=== PATIENT | male | born 2000 | race African-American/Black ===

== ENCOUNTER 2025-06-21 08:41 | Inpatient (IN) | payer BC, SELFPAY ==
[2025-06-21] VITALS (22 sets, daily range): BP systolic 143–170; BP diastolic 83–99; PULSE 45–68; RESP 14–24; TEMP 36.5–37.3; O2SAT 96–100; BMI 21.2
--- NOTE | ~2025-06-21 | XR_ITS ---
EXAMINATION: XR chest 2V DATE: 06/21/2025 11:13 INDICATION: Dizziness. Tachycardia. TECHNIQUE: PA and lateral views of the chest were obtained. COMPARISON: None FINDINGS: The lungs are clear with no focal airspace opacities, pulmonary edema, pleural effusion or pneumothorax. The cardiomediastinal silhouette is normal. Visualized bones and soft tissues are unremarkable. IMPRESSION: 1. No acute cardiopulmonary disease. Reviewed, dictated and finalized at location A.
--- NOTE | ~2025-06-21 | CT_ITS ---
CT brain wo con HISTORY:Dizziness COMPARISON: None. TECHNIQUE: Axial images were obtained of the head without intravenous contrast. FINDINGS: No acute intracranial hemorrhage, mass effect or midline shift. No extra-axial fluid collections. The calvarium is intact. Visualized paranasal sinuses and mastoid air cells are clear. IMPRESSION: No acute intracranial hemorrhage or extra axial fluid collections. All CT scans at this facility are performed using low dose modulation techniques as appropriate to perform exam including the following: automated exposure control; use of iterative reconstruction technique; adjustment of the mA and/or kV according to patient size (this includes techniques or standardized protocols for targeted exams where dose is matched to indication/reason for exam). Reviewed, dictated and finalized at location S. IMPRESSION: No acute intracranial hemorrhage or extra axial fluid collections. All CT scans at this facility are performed using low dose modulation techniqu es as appropriate to perform exam including the following: automated exposure c ontrol; use of iterative reconstruction technique; adjustment of the mA and/or kV according to patient size (this includes techniques or standardized protocol s for targeted exams where dose is matched to indication/reason for exam).
--- NOTE | ~2025-06-21 | US_ITS ---
EXAMINATION: US retroperitoneal duplex ltd DATE: 06/22/2025 09:32 INDICATION: Hypertension and bradycardia with heart block TECHNIQUE: Multiple grayscale, color Doppler, and pulsed Doppler images of the kidneys and renal arteries were obtained. COMPARISON: None. FINDINGS: The aorta peak systolic velocity is 100 cm/s. The right renal artery peak systolic velocity is 98 cm/s in the proximal segment, 83 cm/s in the mid segment, and 68 cm/s in the distal segment. The left renal artery peak systolic velocity is 75 cm/s in the proximal segment, 75 cm/s in the mid segment, and 67 cm/s in the distal segment. IMPRESSION: 1. No Doppler evidence of renal artery stenosis. Reviewed, dictated and finalized at location A.
--- NOTE | 2025-06-21 08:59 | ECG_ITS ---
Test Date: 2025-06-21 09:02:21 Measurements Intervals [place] Rate: 40 P: 9 MN: 152 QRS: 57 QRSD: 93 T: 40 QT: 421 QTc: 344 Interpretive Statements SINUS BRADYCARDIA CANNOT R/O SEPTAL INFARCT, AGE INDETERMINATE ABNORMAL ECG No previous ECG available for comparison Electronically Signed On 06-21-2025 09:06:58 CDT by Jermaine Remy D.O.
[2025-06-21 09:30] LABS: Hematocrit 45.6 % (42.0-52.0); Hemoglobin 14.9 g/dL (14.0-18.0); Immature Granulocyte Percent A 0.2 % (0-0.5); Lymphocytes Absolute Auto 2.17 K/mm3 (0.9-3.2); Mean Corpuscular HGB Conc 32.7 g/dl (32-36); Mean Corpuscular Hemoglobin 29.3 pg (26-34); Mean Corpuscular Volume 89.8 fl (80-100); Nucleated Red Blood Cells Absolute Auto 0.000 K/mm3 (0.0-0.012); Nucleated Red Blood Cells Perc 0.0 % (0.0-0.2); Platelet Count Result 153 k/mm3 (150-375); Red Blood Count 5.08 M/mm3 (4.6-6.20); White Blood Count 5.6 K/mm3 (4.5-10.0)
[2025-06-21] MEDS: SODIUM CHLORIDE 0.9% IV 1,000 ML 999 ML IV CONT (09:41)
--- NOTE | 2025-06-21 09:43 | ED_ITS ---
HPI - Dizziness General Chief Complaint: Abdominal Pain <Umang Balderas APRN - Last Filed: 06/21/25 12:46> Stated Complaint: N/V SINCE 729,DIZZINESS,ABD PAIN <Umang Balderas APRN - Last Filed: 06/21/25 12:46> Time Seen by Provider: 06/21/25 09:19 <Umang Balderas APRN - Last Filed: 06/21/25 12:46> History of Present Illness HPI Narrative: 25-year-old male presents [facility] complaining of dizziness, nausea, vomiting, abdominal pain since last night. Patient said approximately 12 hours ago she started with sudden dizziness, he cannot describe the dizziness but states his face is numb. Since then the patient says he has been having nausea and vomiting and generalized abdominal pain. Patient is having a hard time walking to the dizziness. Patient says when he vomits he feels like he has the past. Denies any loss of consciousness. Patient denies any headaches, ear pain, upper respiratory symptoms, cough, fevers, body aches and chills, chest pain, shortness of breath, diarrhea. Patient denies any significant past medical history. Patient denies any alcohol use. Patient reports using marijuana denies any other drug use. Patient denies taking any medication daily. Patient says this has never happened before. <Umang Balderas APRN - Last Filed: 06/21/25 12:46> Related Data Home Medications: Home Medications ?Medication ?Instructions ?Recorded ?Confirmed ?Last Taken ?Type No Home Medications 06/21/25 06/21/25 U nknown History <Umang Balderas APRN - Last Filed: 06/21/25 12:46> Allergies/Adverse Reactions: Allergies Allergy/AdvReac Type Severity Reaction Status Date / Time No Known Allergies Allergy Verified 06/21/25 14:33 <Umang Balderas APRN - Last Filed: 06/21/25 12:46> Review of Systems 2 Review of Systems: CONSTITUTIONAL: Denies fever, chills, or sweats. EYES: Denies visual changes, redness, or discharge. ENT: Denies rhinorrhea, congestion, sore throat, or otalgia. CARDIOVASCULAR: Denies chest pain, palpitations, or edema. Positive for dizziness and lightheadedness. RESPIRATORY: Denies cough or dyspnea. GASTROINTESTINAL: Positive for abdominal pain, nausea, vomiting. Negative for diarrhea. GENITOURINARY: Denies dysuria or hematuria. SKIN: Denies rash or itching. MUSCULOSKELETAL: Denies back pain, joint pain, or myalgia. NEUROLOGIC: Denies headache, numbness, seizures, loss of consciousness, slurred speech, focal weakness, or weakness. PSYCHIATRIC: Denies anxiety or depression. All other systems reviewed are negative, except as documented in HPI. <Umang Balderas APRN - Last Filed: 06/21/25 12:46> PMFSH Past Medical History Medical History: Medical History (Updated 06/21/25 @ 17:28 by Sunday Royal MD) Migraines Asthma <Umang Balderas APRN - Last Filed: 06/21/25 12:46> Family History Family History: Family History (Updated 06/21/25 @ 17:26 by Sunday Royal MD) Mother Hypertension <Umang Balderas APRN - Last Filed: 06/21/25 12:46> Social History Social History: Social History Smoking status: Never smoker Second hand tobacco smoke exposure: No Alcohol intake: never Substance use: current Substance use type: marijuana Lack of Transportation: No Lack of Food: Never True Current Housing: I Have Housing Concerned About Future Housing: No Difficulty Paying Gas/Electric Bills: No Difficulty Paying for Meds: No Currently Unemployed: No Education: Associate Degree Difficulty w/ Childcare or Family Care: No Spiritual care concerns: No <Umang Balderas APRN - Last Filed: 06/21/25 12:46> Exam 2 Narrative: GENERAL: This is a well-nourished, well-developed adult, in no apparent distress. They are non ill-appearing, nontoxic appearing patient appears lethargic.. HEAD: normocephalic, atraumatic. EYES: Sclera clear/white. Vision is grossly intact. Extraocular movements intact. Pupils PERRLA. No nystagmus. EARS: External ears normal, Hearing grossly intact. NOSE: External nose normal THROAT: Mucous membranes moist, NECK: Neck supple, CARDIOVASCULAR: Bradycardic rate and rhythm without murmurs, gallops, or rubs. RESPIRATORY: Clear to auscultation. Breath sounds equal bilaterally. No wheezes, rales, or rhonchi. GASTROINTESTINAL: Abdomen soft, mild tenderness to of the local region, nondistended. Bowel sounds are active. No hepato-splenomegaly, or palpable masses. No guarding or rigidity. SKIN: warm, Dry, intact with no suspicious lesions or rash, good texture and turgor. NEURO: awake, alert, and oriented to person, place and time. There were no obvious focal neurologic abnormalities. EXTREMITIES: No joint tenderness, effusion, or edema noted. <Umang Balderas APRN - Last Filed: 06/21/25 12:46> Course B2B ACCOUNT EXECUTIVE/PA Physician Supervision DARCY discussed this patient with me/consulted me. I did note that he had a 5second pause and a 3+ second pause on rhythm strip when RN noted that he became bradycardic to 29. EKG was without pauses but discussed the importance of obtaining electrolytes, assessing for murmurs (at baseline as well as invoking maneuvers that might identify them), asking family history. While possible that at baseline he is bradycardic (no VS from previous in EMR for review) given age/body habitus, and he might have had a vagal episode, the pauses would be concerning and I recommended consulting cardiology. Patient has also been hypertensive which, given age, is somewhat worrisome. Advised UDS be obtained. Noted that patient might benefit from an echo but that these are not performed outpatient / for ED patients. Patient ultimately admitted. <Garima Velazquez MD - Last Filed: 06/22/25 04:34> Vital Signs Vital signs: Vital Signs Pulse Rate 47 L 06/21/25 08:58 Respiratory Rate 24 H 06/21/25 08:58 Pulse Oximetry 96 06/21/25 08:58 Temperature 99.1 F 06/21/25 22:00 Pulse Rate 49 L 06/22/25 04:00 Respiratory Rate 20 06/21/25 22:00 Blood Pressure 160/99 H 06/21/25 22:00 Pulse Oximetry 99 06/21/25 22:00 Oxygen Delivery Room Air 06/21/25 21:45 <Umang Balderas APRN - Last Filed: 06/21/25 12:46> Vital Signs Pulse Rate 47 L 06/21/25 08:58 Respiratory Rate 24 H 06/21/25 08:58 Pulse Oximetry 96 06/21/25 08:58 Temperature 99.1 F 06/21/25 22:00 Pulse Rate 49 L 06/22/25 04:00 Respiratory Rate 20 06/21/25 22:00 Blood Pressure 160/99 H 06/21/25 22:00 Pulse Oximetry 99 06/21/25 22:00 Oxygen Delivery Room Air 06/21/25 21:45 <Garima Velazquez MD - Last Filed: 06/22/25 04:34> MDM - Dizziness MDM Narrative Medical decision making narrative: EKG is sinus bradycardia, possible LVH, no ST elevation or depression. Patient to sinus pauses while here today. Longest pause was approximately 5 seconds, 2nd was at 3.4 seconds, and earlier this morning. No other sinus positive bowel patient has been here. CBC, CMP, delete grossly unremarkable. Negative troponin. Normal magnesium. Urinalysis showed 2+ ketones and protein, urine drug screen shows marijuana he use which patient admits to. Chest x-ray negative for acute cardiopulmonary findings, no cardiomegaly. Patient reports feeling significantly better after IV fluids. Called Dr. Royal from cardiology about patient who agrees patient should be admitted for observation have echo obtained. Patient is agreeable to be admitted to the hospital. Called hospitalist and spoke with Dr. Leiva who agrees and will admit the patient to observation on med tele. <Umang Balderas APRN - Last Filed: 06/21/25 12:46> Differential Diagnosis Differential diagnosis: Likely other (Sinus bradycardia, sinus pauses, sick sinus syndrome, HOCM, dehydration, cyclic vomiting, cardiomyopathy, arrhythmia, myocardial infarction) <Umang Balderas APRN - Last Filed: 06/21/25 12:46> Lab Data Result diagrams: 06/21/25 09:14 06/21/25 09:14 <Umang Balderas APRN - Last Filed: 06/21/25 12:46> Labs: Lab Results 06/21/25 06/21/25 06/21/25 Range/Units 09:14 09:14 09:30 WBC 5.6 (4.5-10.0) K/mm3 RBC 5.08 (4.6-6.20) M/mm3 Hgb 14.9 (14.0-18.0) g/dL Hct 45.6 (42.0-52.0) % MCV 89.8 (80-100) fl MCH 29.3 (26-34) pg MCHC 32.7 (32-36) g/dl RDW 14.4 (11.5-14.5) % Plt Count 153 (150-375) k/mm3 MPV 11.0 H (7.4-10.4) fl Immature Gran % (Auto) 0.2 (0-0.5) % Neut % (Auto) 52.5 (45.5-73.1) % Lymph % (Auto) 38.9 (18.3-44.2) % [place] % (Auto) 6.6 (2.6-8.5) % Eos % (Auto) 1.4 (0-4.4) % Baso % (Auto) 0.4 (0.2-1.2) % Lymph # (Auto) 2.17 (0.9-3.2) K/mm3 [place] # (Auto) 0.4 (0.1-0.6) K/mm3 Eos # (Auto) 0.1 (0-0.3) K/mm3 Baso # (Auto) 0.0 (0.0-0.1) K/mm3 Abs Immat Gran (auto) 0.01 (0.00-0.031) K/mm3 Absolute Neuts (auto) 2.9 (1.3-6.7) K/mm3 Absolute Nucleated RBC 0.000 (0.0-0.012) K/mm3 Nucleated RBC % 0.0 (0.0-0.2) % Sodium 138 (137-145) mmol/L Potassium 3.7 (3.4-5.0) mmol/L Chloride 105 (98-107) mmol/L Carbon Dioxide 26 (22-30) mmol/L Anion Gap 7 (4-12) mmol/L BUN 12 (9-20) mg/dL Creatinine 1.03 (0.7-1.3) mg/dL Estim Creat Clear Calc 107 ml/min Estimated GFR > 60 (59 - ) Glucose 96 (65-110) mg/dL Calcium 9.1 (8.4-10.2) mg/dL Magnesium 1.8 Cancelled (1.6-2.3) mg/dL Total Bilirubin 0.9 (0.2-1.3) mg/dL AST 32 (17-59) U/L ALT 17 (6-50) U/L Alkaline Phosphatase 59 (38-126) U/L Troponin I < 0.012 (0.000-0.034) ng/mL Total Protein 7.6 (6.3-8.2) g/dL Albumin 4.3 (3.5-5.1) g/dL Lipase 22 L (23-300) U/L TSH 0.966 (0.465-4.680) uIU/mL Thyroxine (T4) 9.64 (5.53-11.0) ug/dL Urine Color Yellow (Yellow) Urine Appearance Clear (Clear) Urine pH 6.5 (5.0-9.0) Ur Specific [place] 1.022 (1.001-1.035) Urine Protein 2+ H (Negative) mg/dL Urine Glucose (UA) Negative (Negative) mg/dL Urine Ketones 2+ H (Negative) mg/dL Ur Blood (Man) Negative (Negative) Urine Nitrate Negative (Negative) Urine Bilirubin Negative (Negative) Urine Urobilinogen 1.0 (<2.0) mg/dL Leukocyte Esterase Rfl Negative (Negative) JYOTI/UL Urine RBC 0-2 (0-2) /hpf Urine WBC 0-5 (0-3) /hpf Ur Squamous Epith Cells None seen (Few) /hpf Urine Bacteria None seen /hpf Urine Casts 0-2 Urine Opiates Screen Negative (Negative) Urine Methadone Screen Negative (Negative) Ur Barbiturates Screen Negative (Negative) Ur Phencyclidine Scrn Negative (Negative) Ur Amphetamine Screen Negative (Negative) U Benzodiazepines Scrn Negative (Negative) Urine Cocaine Screen Negative (Negative) U Cannabinoids Screen Positive A (Negative) <Umang Balderas, ENGINEERING AND DEVELOPMENT DIRECTOR - Last Filed: 06/21/25 12:46> Lab Results 06/21/25 06/21/25 06/21/25 Range/Units 09:14 09:14 09:30 WBC 5.6 (4.5-10.0) K/mm3 RBC 5.08 (4.6-6.20) M/mm3 Hgb 14.9 (14.0-18.0) g/dL Hct 45.6 (42.0-52.0) % MCV 89.8 (80-100) fl MCH 29.3 (26-34) pg MCHC 32.7 (32-36) g/dl RDW 14.4 (11.5-14.5) % Plt Count 153 (150-375) k/mm3 MPV 11.0 H (7.4-10.4) fl Immature Gran % (Auto) 0.2 (0-0.5) % Neut % (Auto) 52.5 (45.5-73.1) % Lymph % (Auto) 38.9 (18.3-44.2) % [place] % (Auto) 6.6 (2.6-8.5) % Eos % (Auto) 1.4 (0-4.4) % Baso % (Auto) 0.4 (0.2-1.2) % Lymph # (Auto) 2.17 (0.9-3.2) K/mm3 [place] # (Auto) 0.4 (0.1-0.6) K/mm3 Eos # (Auto) 0.1 (0-0.3) K/mm3 Baso # (Auto) 0.0 (0.0-0.1) K/mm3 Abs Immat Gran (auto) 0.01 (0.00-0.031) K/mm3 Absolute Neuts (auto) 2.9 (1.3-6.7) K/mm3 Absolute Nucleated RBC 0.000 (0.0-0.012) K/mm3 Nucleated RBC % 0.0 (0.0-0.2) % Sodium 138 (137-145) mmol/L Potassium 3.7 (3.4-5.0) mmol/L Chloride 105 (98-107) mmol/L Carbon Dioxide 26 (22-30) mmol/L Anion Gap 7 (4-12) mmol/L BUN 12 (9-20) mg/dL Creatinine 1.03 (0.7-1.3) mg/dL Estim Creat Clear Calc 107 ml/min Estimated GFR > 60 (59 - ) Glucose 96 (65-110) mg/dL Calcium 9.1 (8.4-10.2) mg/dL Magnesium 1.8 Cancelled (1.6-2.3) mg/dL Total Bilirubin 0.9 (0.2-1.3) mg/dL AST 32 (17-59) U/L ALT 17 (6-50) U/L Alkaline Phosphatase 59 (38-126) U/L Troponin I < 0.012 (0.000-0.034) ng/mL Total Protein 7.6 (6.3-8.2) g/dL Albumin 4.3 (3.5-5.1) g/dL Lipase 22 L (23-300) U/L TSH 0.966 (0.465-4.680) uIU/mL Thyroxine (T4) 9.64 (5.53-11.0) ug/dL Urine Color Yellow (Yellow) Urine Appearance Clear (Clear) Urine pH 6.5 (5.0-9.0) Ur Specific [place] 1.022 (1.001-1.035) Urine Protein 2+ H (Negative) mg/dL Urine Glucose (UA) Negative (Negative) mg/dL Urine Ketones 2+ H (Negative) mg/dL Ur Blood (Man) Negative (Negative) Urine Nitrate Negative (Negative) Urine Bilirubin Negative (Negative) Urine Urobilinogen 1.0 (<2.0) mg/dL Leukocyte Esterase Rfl Negative (Negative) JYOTI/UL Urine RBC 0-2 (0-2) /hpf Urine WBC 0-5 (0-3) /hpf Ur Squamous Epith Cells None seen (Few) /hpf Urine Bacteria None seen /hpf Urine Casts 0-2 Urine Opiates Screen Negative (Negative) Urine Methadone Screen Negative (Negative) Ur Barbiturates Screen Negative (Negative) Ur Phencyclidine Scrn Negative (Negative) Ur Amphetamine Screen Negative (Negative) U Benzodiazepines Scrn Negative (Negative) Urine Cocaine Screen Negative (Negative) U Cannabinoids Screen Positive A (Negative) <Garima Velazquez MD - Last Filed: 06/22/25 04:34> Imaging Data Radiologist's impression: ITS Impressions Chest X-Ray 06/21/25 11:39 IMPRESSION: 1. No acute cardiopulmonary disease. <Umang Balderas APRN - Last Filed: 06/21/25 12:46> ECG Data EKG #1: Attestation: I personally reviewed and interpreted this ECG as follows: <Umang Balderas APRN - Last Filed: 06/21/25 12:46> ECG completion date: 06/21/25 <Umang Balderas APRN - Last Filed: 06/21/25 12:46> ECG completion time: 09:02 <Umang Balderas APRN - Last Filed: 06/21/25 12:46> Prior ECG tracings: not available for review <Umang Balderas APRN - Last Filed: 06/21/25 12:46> Interpretation: Abnormal ekg <Umang Balderas APRN - Last Filed: 06/21/25 12:46> EKG Interpretation: bradycardia, sinus rhythm, no ST changes, normal QRS, normal QT and other (LVH criteria V5, V4) <Umang Balderas APRN - Last Filed: 06/21/25 12:46> Discharge Plan Discharge Clinical Impression: Dizziness, Bradycardia, Sinus pause <Umang Balderas APRN - Last Filed: 06/21/25 12:46> Patient Disposition: Still a Patient <Umang Balderas APRN - Last Filed: 06/21/25 12:46> Condition: Stable <Umang Balderas APRN - Last Filed: 06/21/25 12:46> Time of Disposition: 12:38 <Umang Balderas APRN - Last Filed: 06/21/25 12:46> 12:38 <Garima Velazquez MD - Last Filed: 06/22/25 04:34>
[2025-06-21 09:48] LABS: Alanine Aminotransferase 17 U/L (6-50); Albumin Level 4.3 g/dL (3.5-5.1); Alkaline Phosphatase 59 U/L (38-126); Anion Gap 7 mmol/L (4-12); Aspartate Amino Transferase 32 U/L (17-59); Bilirubin,Total 0.9 mg/dL (0.2-1.3); Blood Urea Nitrogen 12 mg/dL (9-20); Calcium 9.1 mg/dL (8.4-10.2); Carbon Dioxide 26 mmol/L (22-30); Chloride 105 mmol/L (98-107); Estimated CRCL calculation 107 ml/min; Estimated Glomerular Filt Rate > 60; Glucose 96 mg/dL (65-110); Lipase 22 U/L (23-300); Magnesium 1.8 mg/dL (1.6-2.3); Potassium 3.7 mmol/L (3.4-5.0); Sodium 138 mmol/L (137-145); Total Protein 7.6 g/dL (6.3-8.2)
[2025-06-21 10:04] LABS: Add Urine Microscopic? YES; Appearance Urine Clear (Clear); Glucose Urine UA Negative (Negative); Leukocyte Esterase Ur Negative LEU/UL (Negative); Nitrate Urine Negative (Negative); Non Pathogenic Casts 0-2; Specific Grav Ur 1.022 (1.001-1.035)
[2025-06-21 10:27] LABS: Cannabinoid Screen Urine Positive (Negative)
[2025-06-21 11:06] LABS: Troponin I < 0.012 ng/mL (0.000-0.034)
--- OUTSIDE RECORDS SUMMARY | 2025-06-21 11:35 | XMS_ITS | Patient Health Record ---
Author Organization [facility] Address [address] [place] [address] Support Name Relationship Address Phone Tonio Irizarry Guarantor Unknown [phone] Reason For Referral No Information Medications Medication SIG (Take, Route, Frequency, Duration) Notes Start Date End Date Status Flovent HFA 44 MCG/ACT Inhaler inhale 2 puff (88MCG) by inhalation route 2 times every day Inhalation ([facility]) 04/01/2012 Active Amitriptyline HCl 10 MG take 1 tablet by oral route 3 times every day Oral ([facility]) Active ProAir HFA 108 (90 Base) MCG/ACT Inhaler inhale 2 puff by inhalation route 4 - 6 hours as needed Inhalation ([facility]) 04/01/2012 Active Topamax 25 MG take 2 tablet (50MG) by oral route 2 times every day in the morning and evening Oral ([facility]) Active traMADol HCl 50 MG take 1 tablet by ora l route every 6 hours as needed Oral ([facility]) Active Immunizations Vaccine Route Administration Date Status Comme nts DTaP, 5 pertussis antigens Unknown 2000 Administe red Status:Completed DTaP, 5 pertussis antigens Unknown 2000 Administe red Status:Completed DTaP, 5 pertussis antigens Unknown 2000 Administe red Status:Completed DTaP, 5 pertussis antigens Unknown 06/14/2001 Administe red Status:Completed DTaP, 5 pertussis antigens Unknown 05/15/2004 Administe red Status:Completed HEP A VACC, PED/ADOL, 2 DOSE Unknown 10/09/2009 Administered Status:Completed HEP A VACC, PED/ADOL, 2 DOSE Unknown 04/30/2010 Administered Status:Completed Hib-Hep B Unknown 2000 Administered Status:Compl eted Hib-Hep B Unknown 2000 Administered Status:Compl eted Hib-Hep B Unknown 03/31/2001 Administered Status:Compl eted HPV (human papillomavirus), quadrivalent, 3 dose schedule Unknown 05/28/2011 Administered Status:Completed HPV (human papillomavirus), quadrivalent, 3 dose schedule Unknown 04/01/2012 Administered Status:Completed Influenza (split), 3 yrs and above Unknown 05/28/2011 Administered Status:Completed IPV, VFC Unknown 2000 Administered Status:Compl eted IPV, VFC Unknown 2000 Administered Status:Compl eted IPV, VFC Unknown 03/31/2001 Administered Status:Compl eted IPV, VFC Unknown 05/15/2004 Administered Status:Compl eted Meningococcal MCV4O Unknown 05/28/2011 Administered Sta tus:Completed MMR VACCINE, SC Unknown 06/14/2001 Administered Status: Completed MMR VACCINE, SC Unknown 05/15/2004 Administered Status: Completed Pneumococcal conjugate PCV 7 Unknown 2000 Administered Status:Completed Pneumococcal conjugate PCV 7 Unknown 03/31/2001 Administered Status:Completed TDAP VACCINE >7 IM Unknown 04/01/2012 Administered Stat us:Completed VARICELLA IMMUNIZATION Unknown 03/31/2001 Administered Status:Completed VARICELLA IMMUNIZATION Unknown 10/09/2009 Administered Status:Completed Problems Problem Type SNOMED Code ICD Code Onset Dates Problem Status W/U Status Risk Notes Problem Allergic rhinitis (26977249) Allergic rhinitis, cause unspecified (477.9) 09/07/19 11 Active confirmed ([facility]) Added By: Mely Farnsworth Problem Asthma (disorder) (627584749) Asthma, unspecified, unspecified status (493.90) 09/07/19 11 Active confirmed ([facility]) Added By: Mely Farnsworth Problem Headache (99775000) Headache (784.0) 05/28/20 11 Active confirmed ([facility]) Added By: Gus Daniels Plan Of Treatment No Information Insurance Providers Payer Name Payer Address Payer Phone Subscriber Number Group Number Insured Name Patient Relationship to Insured Coverage Start Date Coverage End Date [facility] [place] [id number] [place] [address] [id number] Tonio Irizarry Self - patient is the insured Medical (General) History Surgical History Surgery Date(Month/Year) Tonsillectomy 2007
--- OUTSIDE RECORDS SUMMARY | 2025-06-21 11:35 | XMS_ITS | Clinical Summary ---
Author Organization [facility] Address [address] [place] [id number] Care Team Providers Care Motorcycle Engine Assembler Name Role Phone Unavailable Primary Care Provider Unavailabl e Immunizations Immunization Administration Dates Next Due Influenza Seasonal Unspecified Formulation IM Social History Tobacco Use Types Packs/Day Years Used Date Smoking Tobacco: Never Assessed Sex and Gender Information Value Date Recorded Sex Assigned at Not on file Legal Sex Male 9:39 AM CDT Gender Identity Not on file Sexual Orientation Not on file Plan of Treatment Health Maintenance Due Date Last Done Comments HPV VACCINES (1 - Male 3-dose series) 02/19/2015 DTAP/TDAP/TD VACCINES (1 - Tdap) 02/19/2019 HEPATITIS B VACCINES (1 of 3 - 19+ 3-dose series) 02/05 INFLUENZA VACCINE (#1) 2025 07/04/2024
--- OUTSIDE RECORDS SUMMARY | 2025-06-21 11:35 | XMS_ITS | Clinical Summary ---
Author Organization [facility] Address [address] [place] [address] Care Team Providers Care Parachute Mender Name Role Phone Conrad Wood Unavailable [phone] Source Comments [facility],non-owned Affiliates and Associated Physician Practices is amultiple site organization consisting of ambulatory clinics and hospital sitesin [place], [place], [place] and [place]. This disclosure is being madepursuant to the Care Everywhere program and may not contain all information available regarding this patient. Last updated 18.[employer] [facility] Allergies No known active allergies Medications * Be aware that medications may not be up to date on this document. Always verify current medications with the patient. mupirocin (BACTROBAN) 2 % ointment Apply to affected area 3 times daily 22 g 9 Active Additional Information Patient not taking.Reported on 05/30/2019 betamethasone valerate (VALISONE) 0.1 % ointment Apply to affected area 2 times daily 45 g 9 Active Additional Information Patient not taking.Reported on 08/17/2019 acetaminophen (Tylenol) 500 MG tablet Take 1 (one) tablet by mouth every 4 hours as needed for Fever or Pain Maximum allowable Acetaminophen amount = 4 Grams (4000 mg) / 24 hours. 30 tablet 5 Active ondansetron, disintegrating , (Zofran ODT) 4 MG tablet Take 1 (one) tablet by mouth every 6 hours as needed for Nausea/Vomiting Allow tablet to dissolve on the tongue 10 tablet 5 Active Immunizations Immunization Administration Dates Next Due TDAP (7yrs+) 10/11/2020 Social History Tobacco Use Types Packs/Day Years Used Date Smoking Tobacco: Never Smokeless Tobacco: Never Alcohol Use Standard Drinks/Week Comments Never 0 (1 standard drink = 0.6 oz pur e alcohol) 2x month, liquor AUDIT-C Answer Date Recorded Q1: How often do you have a drink containing alc ohol? Never 01/02/2020 Average Number of Drinks Not on file 020 Frequency of Binge Drinking Not on file 12/07 Sex and Gender Information Value Date Recorded Sex Assigned at Not on file Legal Sex Male 2:29 PM CDT Gender Identity Not on file Sexual Orientation Not on file Last Filed Vital Signs Vital Sign Reading Time Taken Comments Blood Pressure 156/102 11/07/2024 4:34 PM SHELLS INSPECTOR Pulse 51 11/07/2024 4:34 PM SHELLS INSPECTOR Temperature 36.9 C (98.4 F) 11/07/2024 4:34 PM SHELLS INSPECTOR Respiratory Rate 16 11/07/2024 4:34 PM SHELLS INSPECTOR Oxygen Saturation 99% 11/07/2024 4:34 PM SHELLS INSPECTOR Inhaled Oxygen Concentration - - Weight 72.6 kg (160 lb) 11/07/2024 4:34 PM SHELLS INSPECTOR Height 185.4 cm (6' 1) 11/07/2024 4:34 PM SHELLS INSPECTOR Body Mass Index 21.11 11/07/2024 4:34 PM SHELLS INSPECTOR Plan of Treatment Health Maintenance Due Date Last Done Comments HIV SCREENING 02/19/2015 HPV VACCINE (1 - Male 3-dose series) 02/19/2015 HEPATITIS C SCREENING 02/15/2018 HEPATITIS B VACCINE (1 of 3 - 19+ 3-dose series) 02/19/2019 DEPRESSION SCREENING 09/07/2024 COVID-19 VACCINE (1 - 2023-2 5 season) 2025 INFLUENZA VACCINE (#1) 2025 07/04/2024 DTAP/TDAP/TD VACCINES (2 - T d or Tdap) 10/11/2030 10/11/2020 ZOSTER VACCINE (1 of 2) 02/19/2050 HIB VACCINE Aged Out No longer eligi ble based on patient's age to complete this topic MENINGOCOCCAL (Group B) VACC INE SHARED DECISION-MAKING Aged Out No longer eligibl e based on patient's age to complete this topic MENINGOCOCCAL GROUPS A/C/Y/W VACCINE Aged Out No longer eligible b ased on patient's age to complete this topic PNEUMOCOCCAL VACCINE Aged Out No long er eligible based on patient's age to complete this topic Insurance [place] MED[place] [facility] MEDICAID Care Teams Parachute Mender Relationship Specialty Start Date End Date Conrad Wood APRN-EXPELLER OPERATOR [facility] [place] [address] PCP - Attributed-[employer] Medicaid [place] 10/08/24
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
--- NOTE | 2025-06-21 12:45 | ECHO_ITS ---
Patient Info Name: Tonio Irizarry Age: 25 years : 2000 Gender: Male Ht: 74 in Wt: 172 lbs BSA: 2.01 m2 HR: 42 bpm BP: 168 / 91 mmHg Heart Rhythm: Bradycardia Technical Quality: Good Exam Date: 06/21/2025 1:41 PM Patient Status: O Admit Date: 06/21/2025 Exam Type: CA echo dop color flow w con Complete two-dimensional, color flow and Doppler transthoracic echocardiogram is performed with contrast to opacify the left ventricle and to improve the deliniation of the left ventricle endocardial borders. Staff Referring Physician: Umang Balderas Refurbish Technician: Yas Mcmillan Attending Provider: Samara Leiva Contrast/Agitated Saline Contrast/Ag. Saline: Definity Amount: 2.00 ml Summary 1. Left ventricular chamber dimension is normal. 2. Left ventricular systolic function is normal, estimated at 60-65. 3. There is mildly increased left ventricular wall thickness. 4. The left ventricular diastolic function is normal. 5. Heavy trabeculation is seen at the apex, anterior, anterolateral, inferolateral wall segments. Possible small diverticulum noted in the basal to mid inferior wall. 6. There is mild aortic valve regurgitation. 7. There is mild mitral valve regurgitation. 8. There is mild tricuspid valve regurgitation. 9. There is mild pulmonic regurgitation. 10. Marked bradycardia is noted. 11. Advanced cardiac imaging is recommended such as a cardiac MRI for further evaluation for cardiac noncompaction. Left Ventricle Left ventricular chamber dimension is normal. Left ventricular systolic function is normal, estimated at 60-65. There is mildly increased left ventricular wall thickness. The left ventricular diastolic function is normal. Heavy trabeculation is seen at the apex, anterior, anterolateral, inferolateral wall segments. Possible small diverticulum noted in the basal to mid inferior wall. Right Ventricle Right ventricular chamber dimension is normal. Right ventricular systolic function is normal. Left Atria Left atrial chamber dimension is normal. Right Atria Right atrial chamber dimension is normal. Atrial Septum Intact interatrial septum visualized by color flow imaging. Aortic Valve The aortic valve is trileaflet. There is no aortic valve sclerosis. There is no aortic valve stenosis. There is mild aortic valve regurgitation. Pulmonic Valve The pulmonic valve is normal. There is no pulmonic valve stenosis. There is mild pulmonic regurgitation. Mitral Valve The mitral valve has normal leaflets. There is no mitral valve stenosis. There is mild mitral valve regurgitation. Tricuspid Valve The tricuspid valve leaflets are normal. There is no significant tricuspid valve stenosis. There is mild tricuspid valve regurgitation. No pulmonary hypertension, estimated pulmonary arterial systolic pressure is 32 mmHg. Other Findings Marked bradycardia is noted. Advanced cardiac imaging is recommended such as a cardiac MRI for further evaluation for cardiac noncompaction. Pericardium/Pleural The pericardium appears normal. There is no pericardial effusion. Inferior Vena Cava Dilated inferior vena cava with <50% collapse upon inspiration consistent with elevated right atrial pressure, 10 mmHg. Aorta The aortic root size at the sinus of Valsalva is normal. Left Ventricular Outflow Tract Name Value Normal LVOT 2D LVOT Diameter 2.0 cm LVOT Doppler LVOT Peak Velocity 116 cm/s LVOT Peak Gradient 5 mmHg LVOT Mean Gradient 3 mmHg LVOT VTI 30 cm LVOT Stroke Volume 97 ml LVOT CO 4.1 l/min LVOT CI 2.0 l/min/m2 Pulmonic Valve Name Value Normal RVOT Doppler RVOT Peak Velocity 88 cm/s RVOT Peak Gradient 3 mmHg PV Doppler PV Peak Velocity 103 cm/s PV Peak Gradient 4 mmHg Mitral Valve Name Value Normal MV Diastolic Function MV E Peak Velocity 77 cm/s MV A Peak Velocity 68 cm/s MV E/A 1.1 MV Decel Time (PW) 340 ms MV Annular TDI MV E/e' (Septal) 10.1 MV E/e' (Lateral) 6.1 MV E/e' (Average) 8.1 Tricuspid Valve Name Value Normal Estimated PAP/RSVP RA Pressure 10 mmHg <=5 PA Systolic Pressure 32 mmHg <36 Aortic Valve Name Value Normal AV Doppler AV Peak Velocity 168 cm/s AV Peak Gradient 11 mmHg AV Area (Cont Eq Larry) 2.3 cm2 AV DI (Larry) 0.69 AV Regurgitation 2D LVOT Area 3.3 cm2 Ventricles Name Value Normal LV Dimensions 2D/MM IVS Diastolic Thickness (2D) 0.7 cm 0.6-1.0 LVID Diastole (2D) 4.8 cm 4.2-5.8 LVIW Diastolic Thickness (2D) 1.2 cm 0.6-1.0 LVID Systole (2D) 3.5 cm 2.5-4.0 LVOT Diameter 2.0 cm LV Mass (2D Cubed) 166.52 g 88.00-224.00 LV Mass Index (2D Cubed) 83 g/m2 49-115 Relative Wall Thickness (2D) 0.52 <=0.42 LV Fractional Shortening/Ejection Fraction 2D/MM LV Fractional Shortening (2D) 26 % 25-43 LV EF (2D Teichholz) 51 % LV Diastolic Volume (4C MOD) 152 ml LV EF (4C MOD) 59 % LV Diastolic Volume (2C MOD) 194 ml LV EF (2C MOD) 65 % LV Diastolic Volume (BP MOD) 178 ml 62-150 LV Diastolic Volume Index (BP MOD) 88 ml/m2 34-74 LV Systolic Volume (BP MOD) 66 ml 21-61 LV Systolic Volume Index (BP MOD) 33 ml/m2 11-31 LV EF (BP MOD) 63 % 52-72 LV Diastolic Length (4C) 8.7 cm LV Systolic Length (4C) 7.6 cm LV Stroke Volume (4C MOD) 90 ml Atria Name Value Normal LA Dimensions LA Volume (4C A-L) 77 ml LA Volume (BP A-L) 76 ml RA Dimensions RA Systolic Major [place] Length (4C) 5.2 cm 2.1-2.7 RA Area (4C) 18.1 cm2 <=18.0 Report Signatures
[2025-06-21] MEDS: PERFLUTREN LIPID MICROSPHERES 1.5 ML VIAL DILUTED TO 10 ML TOTAL VOLUME IV PUSH (14:13)
--- NOTE | 2025-06-21 14:13 | IVDEFINITY ---
Prior to administration of IV Definity the patient was educated on the risks and benefits of the imaging enhancing agent including potential adverse side effects. The patient verbalized understanding. Allergies were verified. No exclusion criteria were identified and at least one of the following inclusion criteria were met: 1) physician request, 2) patient technically difficult to image (per the [place] [employer] Echocardi[employer] guidelines of two or more segments not discernable within the apical view), or 3) questionable left ventricular function. ?
--- NOTE | 2025-06-21 14:25 | ADMGEN ---
This patient, Tonio Irizarry, was admitted to [facility] Surg Room 326-01. Patient/family oriented to hospital policies and general routines including ID bracelet, bed and alarms, visiting hours, pain management, procedures, bathroom and other care routines, personal items, smoking policy, room service/diet, and visiting hours. Information on how to activate the Rapid Response Team has been discussed. Patient/Family are encouraged to report perceived risks to care and to ask questions if they do not understand what they are told or what they should do.
--- NOTE | 2025-06-21 16:29 | P.HP_ITS ---
H&P: HPI History of Present Illness Date/Time: 06/21/25 16:30 Chief Complaint: Dizziness and vomiting Narrative: 25 yo male with no PMH presented to the ER on account of vomiting and dizziness. Patient was mostly unco-operative however noted he started having dizziness and vomiting. Described dizziness as the room spinning. Otherwise Denies any chest pain, palpitations, abd pain, diarrhea or focal deficits ER eval notable for BP 164/97, HR 47 saturating 100 patient on room air. Labs UDS positive for Cannabinoids CXR no acute changes, EKG showed Sinus bradycardia patient was noted to have 5 seconds pauses Review of Systems Review of Systems: All other systems were reviewed and negative except as noted in the HPI above [facility] Social History Social History Smoking status: Never smoker Second hand tobacco smoke exposure: No Alcohol intake: never Substance use: current Substance use type: marijuana Lack of Transportation: No Lack of Food: Never True Current Housing: I Have Housing Concerned About Future Housing: No Difficulty Paying Gas/Electric Bills: No Difficulty Paying for Meds: No Currently Unemployed: No Education: Associate Degree Difficulty w/ Childcare or Family Care: No Spiritual care concerns: No Meds Home Medications and Allergies Home Medications ?Medication ?Instructions ?Recorded ?Confirmed ?Type No Home Medications 06/21/25 06/21/25 H istory Allergies Allergy/AdvReac Type Severity Reaction Status Date / Time No Known Allergies Allergy Verified 06/21/25 14:33 Vital Signs Vital Signs - 24 hr 06/21/25 08:58 06/21/25 08:59 06/21/25 08:59 Temperature 98.6 F Pulse Rate 47 L 46 L 48 L Respiratory Rate 24 H 16 20 Blood Pressure 170/92 H 166/91 H Pulse Oximetry 96 100 100 Oxygen Delivery Room Air 06/21/25 09:00 06/21/25 09:01 06/21/25 09:15 Temperature Pulse Rate 51 L 45 L 47 L Respiratory Rate 20 14 20 Blood Pressure 170/92 H Pulse Oximetry 100 100 100 Oxygen Delivery 06/21/25 09:30 06/21/25 09:44 06/21/25 09:45 Temperature Pulse Rate 49 L 51 L 64 Respiratory Rate 19 20 23 H Blood Pressure 170/92 H 162/83 H Pulse Oximetry 100 100 100 Oxygen Delivery 06/21/25 09:46 06/21/25 09:47 06/21/25 09:48 Temperature Pulse Rate 46 L 52 L 54 L Respiratory Rate 20 22 H 19 Blood Pressure 161/90 H 154/84 H Pulse Oximetry 100 100 100 Oxygen Delivery 06/21/25 09:50 06/21/25 09:50 06/21/25 09:50 Temperature Pulse Rate 47 L 48 L 51 L Respiratory Rate Blood Pressure 162/83 H 161/90 H 154/84 H Pulse Oximetry Oxygen Delivery 06/21/25 10:00 06/21/25 10:15 06/21/25 10:57 Temperature Pulse Rate 51 L 49 L Respiratory Rate 19 15 Blood Pressure 143/98 H Pulse Oximetry 97 99 100 Oxygen Delivery 06/21/25 12:32 06/21/25 13:25 06/21/25 14:16 Temperature Pulse Rate 56 L 48 L 58 L Respiratory Rate 14 17 18 Blood Pressure 156/92 H 154/86 H Pulse Oximetry 100 100 100 Oxygen Delivery 06/21/25 14:30 06/21/25 14:56 Temperature 97.7 F Pulse Rate 47 L Respiratory Rate 16 Blood Pressure 164/97 H Pulse Oximetry 100 Oxygen Delivery Room Air Exam Narrative: General: alert and comfortable Eyes: EOMI, PERRLA ENNT External ears normal, Neck is supple, no masses, Respiratory systems: Clear to auscultation Cardiovascular S1, S2, normal rhythm, no murmur, rub, or gallop; no thrill or palpable murmurs on palpation. Gastrointestinal: soft, non-tender, and non-distended abdomen with no masses; BS present Skin: no rash, lesions, ulcerations, subcutaneous nodules or induration Musculoskeletal: no abnormality and no tenderness, normal ROM Neurologic: Alert and oriented x3, non focal Mental Status Exam: normal affect H&P: Results Labs Labs: Short CBC 06/21/25 Range/Units 09:14 WBC 5.6 (4.5-10.0) K/mm3 Hgb 14.9 (14.0-18.0) g/dL Hct 45.6 (42.0-52.0) % Plt Count 153 (150-375) k/mm3 BMP 06/21/25 09:14 Sodium 138 Potassium 3.7 Chloride 105 Carbon Dioxide 26 BUN 12 Creatinine 1.03 Glucose 96 Calcium 9.1 Cardiac Enzymes 06/21/25 Range/Units 09:14 Troponin I < 0.012 (0.000-0.034) ng/mL Liver Function 06/21/25 Range/Units 09:14 Total Bilirubin 0.9 (0.2-1.3) mg/dL AST 32 (17-59) U/L ALT 17 (6-50) U/L Alkaline Phosphatase 59 (38-126) U/L Albumin 4.3 (3.5-5.1) g/dL Urine 06/21/25 Range/Units 09:30 Urine Color Yellow (Yellow) Urine Appearance Clear (Clear) Urine pH 6.5 (5.0-9.0) Ur Specific [place] 1.022 (1.001-1.035) Urine Protein 2+ H (Negative) mg/dL Urine Glucose (UA) Negative (Negative) mg/dL Assessment and Plan Assessment and plan (1) Sinus pause: Code(s): I45.5 - Other specified heart block Status: Acute Plan Sinus pause patient noted to have 5 seconds and 3.4 seconds pauses in the ER Presented with dizziness and vomiting EKG showed sinus bradycardia NO loss of consciousness CT head, ECHO, troponin ordered, orthostatic vital signs Cardiology consulted Hypertension US renal duplex, Metanephrines, DHEAS, Renin, Renin/Aldosterone for secondary etiology Amlodipine 5mg daily and monitor DVT prophylaxis on Sq Lovenox Full code SDM: Mother [place] [facility]
--- NOTE | 2025-06-21 17:22 | P.CONCA_ITS ---
Assessment and Plan Assessment and plan (1) Bradycardia: Code(s): R00.1 - Bradycardia, unspecified Status: Acute Assessment and Plan: Patient was markedly bradycardic and did have sinus pauses. This could be from vasovagal type reaction from his nausea and vomiting. Nausea and vomiting could be from GI illness or even from cannabinoid hyperemesis syndrome. However the echocardiogram is abnormal as detailed above. Keep him on telemetry overnight. Will check a TSH and T4 level. Advanced cardiac imaging is recommended including a cardiac MRI to evaluate for evidence of cardiac noncompaction. If possible, arrange transfer to [facility] as inpatient (2) Sinus pause: Code(s): I45.5 - Other specified heart block Status: Acute Assessment and Plan: As detailed above (3) Dizziness: Code(s): R42 - Dizziness and giddiness Status: Acute Assessment and Plan: Related to sinus pauses and marked bradycardia (4) Abnormal echocardiogram: Code(s): R93.1 - Abnormal findings on diagnostic imaging of heart and coronary circulation Status: Acute Assessment and Plan: Cannot exclude off axis imaging but appears that there is left ventricular hypertrophy or heavy trabeculation which could be related to cardiac noncompaction. Left ventricular noncompaction does have a correlation with bradycardia. Advanced imaging is recommended (5) Elevated blood pressure reading: Code(s): R03.0 - Elevated blood-pressure reading, without diagnosis of hypertension Status: Acute Assessment and Plan: Patient does have elevated blood pressure. Obviously avoid AV colton agents. (6) Marijuana use: Code(s): F12.90 - Cannabis use, unspecified, uncomplicated Status: Acute Assessment and Plan: Marijuana cessation recommended. Cannot exclude this being related to cannabinoid hyperemesis syndrome History of Present Illness History of Present Illness Consult date/time: 06/21/25 17:22 Requesting physician: Samara Leiva MD Consult reason: Other (Bradycardia, dizziness) Reason For Visit: Dizziness Narrative: Date of service 06/21/2025 Reason for consultation: Bradycardia, dizziness Requesting provider: Dr. Lieva History: Patient is a 25-year-old male who has no significant cardiac history. Came to the hospital today following feeling very weak and dizzy as if he was going to pass out. He was going to work and he became nauseated and threw up. He was very diaphoretic. He came to the hospital and was found to be markedly bradycardic with heart rate as low as in the 30s and did have pauses of up to 5 seconds. He was dizzy during these episodes. He was given IV fluids. He no longer is vomiting but was nauseated still but never he was in the ER. He does occasionally have some chest tightness that occurs randomly a couple times per month. It will last off and on throughout the day. He has some occasional palpitations which she describes as hard heartbeats. No syncope. No paroxysmal nocturnal dyspnea, orthopnea or edema. Review of Systems 2 Review of Systems: All systems reviewed & are unremarkable except as noted in HPI and below Constitutional: Constitutional: Denies body ache(s) Eyes: Eyes: Denies blurry vision ENT: Reports Normal hearing present Cardiovascular: Cardiovascular: Reports chest pain, Reports lightheadedness and Reports palpitations Respiratory: Respiratory: Denies chest congestion and Denies cough Gastrointestinal: Gastrointestinal: Denies abdominal pain, Reports nausea and Reports vomiting Genitourinary: Genitourinary: Denies hematuria Musculoskeletal: Musculoskeletal: Denies myalgias Integumentary/Breasts: Skin/Breast: Denies dry skin Neurologic: Denies Abnormal speech present Psychiatric: Psychiatric: Denies behavioral changes Endocrine: Endocrine: Reports excessive sweating Hematologic/Lymphatic: Hematologic/Lymphatic: Denies easy bleeding Allergic/Immunologic: Allergic/Immunologic: Denies GI upset with certain foods PMFSH Past Medical History Medical History (Updated 06/21/25 @ 17:28 by Sunday Royal MD) Migraines Asthma Family History Family History (Updated 06/21/25 @ 17:26 by Sunday Royal MD) Mother Hypertension Social History Social History Smoking status: Never smoker Second hand tobacco smoke exposure: No Alcohol intake: never Substance use: current Substance use type: marijuana Lack of Transportation: No Lack of Food: Never True Current Housing: I Have Housing Concerned About Future Housing: No Difficulty Paying Gas/Electric Bills: No Difficulty Paying for Meds: No Currently Unemployed: No Education: Associate Degree Difficulty w/ Childcare or Family Care: No Spiritual care concerns: No Meds Home Medications and Allergies Home Medications ?Medication ?Instructions ?Recorded ?Confirmed ?Type No Home Medications 06/21/25 06/21/25 H istory Allergies Allergy/AdvReac Type Severity Reaction Status Date / Time No Known Allergies Allergy Verified 06/21/25 14:33 Vital Signs Vital Signs - 24 hr 06/21/25 08:58 06/21/25 08:59 06/21/25 08:59 Temperature 37.0 C Pulse Rate 47 L 46 L 48 L Respiratory Rate 24 H 16 20 Blood Pressure 170/92 H 166/91 H Pulse Oximetry 96 100 100 Oxygen Delivery Room Air 06/21/25 09:00 06/21/25 09:01 06/21/25 09:15 Temperature Pulse Rate 51 L 45 L 47 L Respiratory Rate 20 14 20 Blood Pressure 170/92 H Pulse Oximetry 100 100 100 Oxygen Delivery 06/21/25 09:30 06/21/25 09:44 06/21/25 09:45 Temperature Pulse Rate 49 L 51 L 64 Respiratory Rate 19 20 23 H Blood Pressure 170/92 H 162/83 H Pulse Oximetry 100 100 100 Oxygen Delivery 06/21/25 09:46 06/21/25 09:47 06/21/25 09:48 Temperature Pulse Rate 46 L 52 L 54 L Respiratory Rate 20 22 H 19 Blood Pressure 161/90 H 154/84 H Pulse Oximetry 100 100 100 Oxygen Delivery 06/21/25 09:50 06/21/25 09:50 06/21/25 09:50 Temperature Pulse Rate 47 L 48 L 51 L Respiratory Rate Blood Pressure 162/83 H 161/90 H 154/84 H Pulse Oximetry Oxygen Delivery 06/21/25 10:00 06/21/25 10:15 06/21/25 10:57 Temperature Pulse Rate 51 L 49 L Respiratory Rate 19 15 Blood Pressure 143/98 H Pulse Oximetry 97 99 100 Oxygen Delivery 06/21/25 12:32 06/21/25 13:25 06/21/25 14:16 Temperature Pulse Rate 56 L 48 L 58 L Respiratory Rate 14 17 18 Blood Pressure 156/92 H 154/86 H Pulse Oximetry 100 100 100 Oxygen Delivery 06/21/25 14:30 06/21/25 14:56 Temperature 36.5 C Pulse Rate 47 L Respiratory Rate 16 Blood Pressure 164/97 H Pulse Oximetry 100 Oxygen Delivery Room Air Exam 2 Narrative: Awake alert. Appears stated age Const: General: comfortable and no acute distress HENMT: Ears: TM's normal bilaterally Face/Nose/Sinus: Normal nares present Eyes: General: appearance normal, both eyes and all related structures S clera: sclerae normal Neck: Neck: supple and no JVD Chest: Other: No reproducible chest wall pain to palpation Resp: Effort & Inspection: normal respiratory effort Auscultation: clear to auscultation bilaterally Cardio: Rate: regular rate Rhythm: regular rhythm Heart sounds: no murmurs GI: Inspection: non-distended GI Palp: Yes Soft to palpation Skin: General skin exam: normal color Neuro: General: gait normal Speech: normal speech Sensory Exam: normal sensation Extrem: General: normal to inspection Psych: Mental Status: mental status grossly normal Affect: normal affect Results Labs and Meds 06/21/25 09:14 06/21/25 09:14 Lab results: Cardiac Enzymes 06/21/25 Range/Units 09:14 AST 32 (17-59) U/L Troponin I < 0.012 (0.000-0.034) ng/mL CBC 06/21/25 Range/Units 09:14 WBC 5.6 (4.5-10.0) K/mm3 RBC 5.08 (4.6-6.20) M/mm3 Hgb 14.9 (14.0-18.0) g/dL Hct 45.6 (42.0-52.0) % Plt Count 153 (150-375) k/mm3 Lymph # (Auto) 2.17 (0.9-3.2) K/mm3 [place] # (Auto) 0.4 (0.1-0.6) K/mm3 Eos # (Auto) 0.1 (0-0.3) K/mm3 Baso # (Auto) 0.0 (0.0-0.1) K/mm3 Comprehensive Metabolic Panel 06/21/25 Range/Units 09:14 Sodium 138 (137-145) mmol/L Potassium 3.7 (3.4-5.0) mmol/L Chloride 105 (98-107) mmol/L Carbon Dioxide 26 (22-30) mmol/L BUN 12 (9-20) mg/dL Creatinine 1.03 (0.7-1.3) mg/dL Glucose 96 (65-110) mg/dL Calcium 9.1 (8.4-10.2) mg/dL AST 32 (17-59) U/L ALT 17 (6-50) U/L Alkaline Phosphatase 59 (38-126) U/L Total Protein 7.6 (6.3-8.2) g/dL Albumin 4.3 (3.5-5.1) g/dL Intake and Output 06/21/25 06/21/25 06/21/25 07:59 15:59 23:59 Intake Total 1000 Balance 1000 Intake: IV 1000 Sodium Chloride 0.9% IV 1,000 1000 ml @ 999 mls/hr IV CONT .Q1H1M STA Rx#:[id number] Other: # Unmeasured Voids 1 Patient Weight 06/21/25 23:59 Weight 75.1 kg EKG is personally viewed and independently interpreted showing marked sinus bradycardia. Left ventricular hypertrophy Echocardiogram is also personally viewed and independently interpreted 1. Left ventricular chamber dimension is normal. 2. Left ventricular systolic function is normal, estimated at 60-65. 3. There is mildly increased left ventricular wall thickness. 4. The left ventricular diastolic function is normal. 5. Heavy trabeculation is seen at the apex, anterior, anterolateral, inferolateral wall segments. Possible small diverticulum noted in the basal to mid inferior wall. 6. There is mild aortic valve regurgitation. 7. There is mild mitral valve regurgitation. 8. There is mild tricuspid valve regurgitation. 9. There is mild pulmonic regurgitation. 10. Marked bradycardia is noted. 11. Advanced cardiac imaging is recommended such as a cardiac MRI for further evaluation for cardiac noncompaction.
[2025-06-21] MEDS: MELATONIN 3 MG TABLET PO (21:38)
[2025-06-21 21:55] LABS: Thyroid Stimulating Hormone 0.966 uIU/mL (0.465-4.680)
[2025-06-22] VITALS (13 sets, daily range): BP systolic 142–157; BP diastolic 82–101; PULSE 49–96; RESP 16–20; TEMP 35.9–37.1; O2SAT 100
[2025-06-22 06:00] LABS: Hematocrit 47.1 % (42.0-52.0); Hemoglobin 15.7 g/dL (14.0-18.0); Immature Granulocyte Percent A 0.3 % (0-0.5); Lymphocytes Absolute Auto 3.35 K/mm3 (0.9-3.2); Mean Corpuscular HGB Conc 33.3 g/dl (32-36); Mean Corpuscular Hemoglobin 29.7 pg (26-34); Mean Corpuscular Volume 89.0 fl (80-100); Nucleated Red Blood Cells Absolute Auto 0.000 K/mm3 (0.0-0.012); Nucleated Red Blood Cells Perc 0.0 % (0.0-0.2); Platelet Count Result 164 k/mm3 (150-375); Red Blood Count 5.29 M/mm3 (4.6-6.20); White Blood Count 6.3 K/mm3 (4.5-10.0)
[2025-06-22 06:29] LABS: Alanine Aminotransferase 16 U/L (6-50); Albumin Level 4.4 g/dL (3.5-5.1); Alkaline Phosphatase 62 U/L (38-126); Anion Gap 8 mmol/L (4-12); Aspartate Amino Transferase 30 U/L (17-59); Bilirubin,Total 0.6 mg/dL (0.2-1.3); Blood Urea Nitrogen 11 mg/dL (9-20); Calcium 9.2 mg/dL (8.4-10.2); Carbon Dioxide 28 mmol/L (22-30); Chloride 101 mmol/L (98-107); Estimated CRCL calculation 110 ml/min; Estimated Glomerular Filt Rate > 60; Glucose 92 mg/dL (65-110); Magnesium 1.9 mg/dL (1.6-2.3); Potassium 3.9 mmol/L (3.4-5.0); Sodium 137 mmol/L (137-145); Total Protein 8.0 g/dL (6.3-8.2)
[2025-06-22 06:37] LABS: Troponin I < 0.012 ng/mL (0.000-0.034)
[2025-06-22 06:38] LABS: Schistocytes None Seen
[2025-06-22 06:39] LABS: Smudge Cells FEW
[2025-06-22] MEDS: ENOXAPARIN 40 MG/0.4 ML SYRINGE SUB-Q (09:43)
--- NOTE | 2025-06-22 14:34 | PM.IMPN ---
Progress Note: A&P Assessment and Plan (1) Sinus pause: Code(s): I45.5 - Other specified heart block Status: Acute Plan Trabeculated cardiac muscles with Sinus pause patient noted to have 5 seconds and 3.4 seconds pauses in the ER Presented with dizziness and vomiting EKG showed sinus bradycardia, ECHO showed trabeculated cardiac muscles NO loss of consciousness Cardiology recommends transfer to [facility] for cardiac MRI and further care Cardiology following Hypertension US renal duplex, Metanephrines, DHEAS, Renin, Renin/Aldosterone for secondary etiology Amlodipine 5mg daily and monitor DVT prophylaxis on Sq Lovenox Full code Subjective Date/time seen: 06/22/25 14:34 Interval history: Comfortable at bedside Awaiting transfer for higher level of care Review of Systems Review of Systems: All other systems were reviewed and negative except as noted in the HPI above Exam Narrative: General: alert and comfortable Eyes: EOMI, PERRLA ENNT External ears normal, Neck is supple, no masses, Respiratory systems: Clear to auscultation Cardiovascular S1, S2, normal rhythm, no murmur, rub, or gallop; no thrill or palpable murmurs on palpation. Gastrointestinal: soft, non-tender, and non-distended abdomen with no masses; BS present Skin: no rash, lesions, ulcerations, subcutaneous nodules or induration Musculoskeletal: no abnormality and no tenderness, normal ROM Neurologic: Alert and oriented x3, non focal Mental Status Exam: normal affect Objective Data Vital Signs Vital Signs: Vital Signs - 24 hr 06/21/25 14:56 06/21/25 16:00 06/21/25 20:00 Temperature Pulse Rate 55 L 62 Respiratory Rate Blood Pressure Pulse Oximetry Oxygen Delivery Room Air 06/21/25 21:45 06/21/25 22:00 06/22/25 00:00 Temperature 99.1 F Pulse Rate 68 49 L Respiratory Rate 20 Blood Pressure 160/99 H Pulse Oximetry 99 Oxygen Delivery Room Air 06/22/25 04:00 06/22/25 06:00 06/22/25 08:00 Temperature 98.8 F Pulse Rate 49 L 49 L 51 L Respiratory Rate 20 Blood Pressure 142/92 H Pulse Oximetry 100 Oxygen Delivery 06/22/25 08:00 06/22/25 09:42 06/22/25 12:00 Temperature Pulse Rate 96 Respiratory Rate Blood Pressure 146/92 H Pulse Oximetry Oxygen Delivery Room Air 06/22/25 13:40 06/22/25 13:45 06/22/25 13:50 Temperature 97.7 F Pulse Rate 66 Respiratory Rate 16 Blood Pressure 151/96 H 145/94 H 146/101 H Pulse Oximetry 100 Oxygen Delivery Intake/Output Intake/Output: Intake & Output 06/19/25 06/20/25 06/21/25 06/22/25 23:59 23:59 23:59 23:59 Intake Total 1000 0 Output Total 1475 Balance 1000 -1475 Meds/Results Medications: Active Medications Generic Name Dose Route Start Last Admin Trade Name Freq PRN Reason Stop Dose Admin Amlodipine Besylate 5 mg 06/21/25 16:55 06/22/25 09:43 Amlodipine Besylate 5 Mg Tablet PO 5 mg DAILY DANIEL Administration Enoxaparin Sodium 40 mg 06/22/25 09:00 06/22/25 09:43 Enoxaparin 40 Mg/0.4 Ml Syringe SUB-Q 40 mg DAILY DANIEL Administration Melatonin 3 mg 06/21/25 21:19 06/21/25 21:38 Melatonin 3 Mg Tablet PO 3 mg HS PRN Administration sleep Perflutren Lipid Microsphere 0 ml 06/21/25 16:27 Perflutren Lipid Microspheres 1.5 Ml Vial Diluted To 10 Ml Total Volume IV PUSH 06/24/25 16:27 ONCE PRN adequate visualization Protocol Radiology Results: ITS Impressions Chest X-Ray 06/21/25 11:39 IMPRESSION: 1. No acute cardiopulmonary disease. Head CT 06/21/25 20:57 IMPRESSION: No acute intracranial hemorrhage or extra axial fluid collections. All CT scans at this facility are performed using low dose modulation techniques as appropriate to perform exam including the following: automated exposure control; use of iterative reconstruction technique; adjustment of the mA and/or kV according to patient size (this includes techniques or standardized protocols for targeted exams where dose is matched to indication/reason for exam). Arterial/Peripheral Duplex 06/22/25 09:45 IMPRESSION: 1. No Doppler evidence of renal artery stenosis. Labs Labs: Laboratory Results - last 24 hr 06/21/25 06/22/25 09:14 05:52 WBC 6.3 RBC 5.29 Hgb 15.7 Hct 47.1 MCV 89.0 MCH 29.7 MCHC 33.3 RDW 14.1 Plt Count 164 MPV 10.9 H Immature Gran % (Auto) 0.3 Neut % (Auto) 38.4 L Lymph % (Auto) 53.6 H [place] % (Auto) 6.1 Eos % (Auto) 1.3 Baso % (Auto) 0.3 Lymph # (Auto) 3.35 H [place] # (Auto) 0.4 Eos # (Auto) 0.1 Baso # (Auto) 0.0 Abs Immat Gran (auto) 0.02 Absolute Neuts (auto) 2.4 Absolute Nucleated RBC 0.000 Band Neutrophils % Not Reportable Nucleated RBC % 0.0 Smudge Cells Few Platelet Estimate Adequate Large Platelets Present Schistocytes None seen Sodium 137 Potassium 3.9 Chloride 101 Carbon Dioxide 28 Anion Gap 8 BUN 11 Creatinine 0.96 Estim Creat Clear Calc 110 Estimated GFR > 60 Glucose 92 Calcium 9.2 Magnesium 1.9 Total Bilirubin 0.6 AST 30 ALT 16 Alkaline Phosphatase 62 Troponin I < 0.012 Total Protein 8.0 Albumin 4.4 TSH 0.966 Thyroxine (T4) 9.64
[2025-06-22] MEDS: MELATONIN 3 MG TABLET PO (20:46)
[2025-06-22] MEDS: ACETAMINOPHEN 325 MG TABLET 650 MG PO (23:11)
[2025-06-23] VITALS (9 sets, daily range): BP systolic 140–159; BP diastolic 86–100; PULSE 49–95; RESP 16; TEMP 36.2–36.6; O2SAT 98–100
[2025-06-23 07:50] LABS: Hematocrit 48.2 % (42.0-52.0); Hemoglobin 15.7 g/dL (14.0-18.0); Immature Granulocyte Percent A 0.2 % (0-0.5); Lymphocytes Absolute Auto 2.76 K/mm3 (0.9-3.2); Mean Corpuscular HGB Conc 32.6 g/dl (32-36); Mean Corpuscular Hemoglobin 29.0 pg (26-34); Mean Corpuscular Volume 89.1 fl (80-100); Nucleated Red Blood Cells Absolute Auto 0.000 K/mm3 (0.0-0.012); Nucleated Red Blood Cells Perc 0.0 % (0.0-0.2); Platelet Count Result 168 k/mm3 (150-375); Red Blood Count 5.41 M/mm3 (4.6-6.20); White Blood Count 6.1 K/mm3 (4.5-10.0)
[2025-06-23 08:26] LABS: Alanine Aminotransferase 13 U/L (6-50); Albumin Level 4.4 g/dL (3.5-5.1); Alkaline Phosphatase 54 U/L (38-126); Anion Gap 7 mmol/L (4-12); Aspartate Amino Transferase 24 U/L (17-59); Bilirubin,Total 0.7 mg/dL (0.2-1.3); Blood Urea Nitrogen 13 mg/dL (9-20); Calcium 9.4 mg/dL (8.4-10.2); Carbon Dioxide 27 mmol/L (22-30); Chloride 102 mmol/L (98-107); Estimated CRCL calculation 100 ml/min; Estimated Glomerular Filt Rate > 60; Glucose 87 mg/dL (65-110); Magnesium 1.9 mg/dL (1.6-2.3); Potassium 3.9 mmol/L (3.4-5.0); Sodium 136 mmol/L (137-145); Total Protein 7.9 g/dL (6.3-8.2)
[2025-06-23] MEDS: ENOXAPARIN 40 MG/0.4 ML SYRINGE SUB-Q (08:42)
--- NOTE | 2025-06-23 09:22 | PC.NURSE ---
RN gave update to the [facility] transfer center via telephone on patient status.
--- NOTE | 2025-06-23 13:09 | P.PNIM_ITS ---
Progress Note: A&P Assessment and Plan (1) Sinus pause: Code(s): I45.5 - Other specified heart block Status: Acute Plan Trabeculated cardiac muscles with Sinus pause patient noted to have 5 seconds and 3.4 seconds pauses in the ER Presented with dizziness and vomiting EKG showed sinus bradycardia, ECHO showed trabeculated cardiac muscles NO loss of consciousness Cardiology recommends transfer to [facility] for cardiac MRI and further care Cardiology following Hypertension US renal duplex unremarkable DHEAS 447 wnl, Metanephrines, Renin, Renin/Aldosterone pending Amlodipine, Lisinopril, HCTZ DVT prophylaxis on Sq Lovenox Full code Awaiting transfer to [facility] Subjective Date/time seen: 06/23/25 13:09 Interval history: Comfortable at bedside Awaiting transfer for higher level of care Review of Systems Review of Systems: All other systems were reviewed and negative except as noted in the HPI above Exam Narrative: General: alert and comfortable Eyes: EOMI, PERRLA ENNT External ears normal, Neck is supple, no masses, Respiratory systems: Clear to auscultation Cardiovascular S1, S2, normal rhythm, no murmur, rub, or gallop; no thrill or palpable murmurs on palpation. Gastrointestinal: soft, non-tender, and non-distended abdomen with no masses; BS present Skin: no rash, lesions, ulcerations, subcutaneous nodules or induration Musculoskeletal: no abnormality and no tenderness, normal ROM Neurologic: Alert and oriented x3, non focal Mental Status Exam: normal affect Objective Data Vital Signs Vital Signs: Vital Signs - 24 hr 06/22/25 13:40 06/22/25 13:45 06/22/25 13:50 Temperature 97.7 F Pulse Rate 66 Respiratory Rate 16 Blood Pressure 151/96 H 145/94 H 146/101 H Pulse Oximetry 100 Oxygen Delivery 06/22/25 14:00 06/22/25 16:00 06/22/25 20:00 Temperature 97.7 F Pulse Rate 66 71 60 Respiratory Rate 16 Blood Pressure 151/96 H Pulse Oximetry 100 Oxygen Delivery 06/22/25 20:45 06/22/25 21:20 06/23/25 00:00 Temperature 96.7 F L Pulse Rate 60 49 L Respiratory Rate 17 Blood Pressure 157/82 H Pulse Oximetry 100 Oxygen Delivery Room Air 06/23/25 04:00 06/23/25 04:55 06/23/25 08:00 Temperature 97.2 F L Pulse Rate 51 L 52 L 60 Respiratory Rate 16 Blood Pressure 159/86 H 145/87 H Pulse Oximetry 100 100 Oxygen Delivery 06/23/25 08:00 06/23/25 08:05 06/23/25 08:10 Temperature Pulse Rate 61 64 95 Respiratory Rate Blood Pressure 145/100 H 157/97 H Pulse Oximetry 100 98 Oxygen Delivery 06/23/25 08:40 Temperature Pulse Rate Respiratory Rate Blood Pressure Pulse Oximetry Oxygen Delivery Room Air Intake/Output Intake/Output: Intake & Output 06/20/25 06/21/25 06/22/25 06/23/25 23:59 23:59 23:59 23:59 Intake Total 1000 237 660 Output Total 2175 Balance 1000 -1938 660 Meds/Results Medications: Active Medications Generic Name Dose Route Start Last Admin Trade Name Freq PRN Reason Stop Dose Admin Acetaminophen 650 mg 06/22/25 21:54 06/22/25 23:11 Acetaminophen 325 Mg Tablet PO 650 mg Q4H PRN Administration Headache Amlodipine Besylate 5 mg 06/21/25 16:55 06/23/25 08:42 Amlodipine Besylate 5 Mg Tablet PO 5 mg DAILY DANIEL Administration Enoxaparin Sodium 40 mg 06/22/25 09:00 06/23/25 08:42 Enoxaparin 40 Mg/0.4 Ml Syringe SUB-Q 40 mg DAILY DANIEL Administration Hydrochlorothiazide 12.5 mg 06/23/25 09:00 06/23/25 08:42 Hydrochlorothiazide 12.5 Mg Capsule PO 12.5 mg QAM DANIEL Administration Lisinopril 5 mg 06/22/25 14:40 06/23/25 08:42 Lisinopril 5 Mg Tablet PO 5 mg QAM DANIEL Administration Melatonin 3 mg 06/21/25 21:19 06/22/25 20:46 Melatonin 3 Mg Tablet PO 3 mg HS PRN Administration sleep Perflutren Lipid Microsphere 0 ml 06/21/25 16:27 Perflutren Lipid Microspheres 1.5 Ml Vial Diluted To 10 Ml Total Volume IV PUSH 06/24/25 16:27 ONCE PRN adequate visualization Protocol Radiology Results: ITS Impressions Chest X-Ray 06/21/25 11:39 IMPRESSION: 1. No acute cardiopulmonary disease. Head CT 06/21/25 20:57 IMPRESSION: No acute intracranial hemorrhage or extra axial fluid collections. All CT scans at this facility are performed using low dose modulation techniques as appropriate to perform exam including the following: automated exposure control; use of iterative reconstruction technique; adjustment of the mA and/or kV according to patient size (this includes techniques or standardized protocols for targeted exams where dose is matched to indication/reason for exam). Arterial/Peripheral Duplex 06/22/25 09:45 IMPRESSION: 1. No Doppler evidence of renal artery stenosis. Labs Labs: Laboratory Results - last 24 hr 06/21/25 06/23/25 20:30 06:57 WBC 6.1 RBC 5.41 Hgb 15.7 Hct 48.2 MCV 89.1 MCH 29.0 MCHC 32.6 RDW 14.1 Plt Count 168 MPV 11.1 H Immature Gran % (Auto) 0.2 Neut % (Auto) 44.9 L Lymph % (Auto) 45.2 H [place] % (Auto) 8.7 H Eos % (Auto) 0.7 Baso % (Auto) 0.3 Lymph # (Auto) 2.76 [place] # (Auto) 0.5 Eos # (Auto) 0.0 Baso # (Auto) 0.0 Abs Immat Gran (auto) 0.01 Absolute Neuts (auto) 2.7 Absolute Nucleated RBC 0.000 Nucleated RBC % 0.0 Sodium 136 L Potassium 3.9 Chloride 102 Carbon Dioxide 27 Anion Gap 7 BUN 13 Creatinine 1.06 Estim Creat Clear Calc 100 Estimated GFR > 60 Glucose 87 Calcium 9.4 Magnesium 1.9 Total Bilirubin 0.7 AST 24 ALT 13 Alkaline Phosphatase 54 Total Protein 7.9 Albumin 4.4 DHEA Sulfate 447.0
[2025-06-27 11:09] LABS: Renin Activity, Plasma 0.194 ng/mL/hr (0.167-5.380)
[2025-06-28 00:07] LABS: Renin Activity, Plasma 0.216 ng/mL/hr (0.167-5.380)
== END 2025-06-23 19:04 | disposition left against medical advice (07) | DRG 201 ==
LOC: ANHED 12:38 → ANH3MEDSUR 13:09
PROVIDERS: Internal Medicine Cardiovascular Disease; Student in an Organized Health Care Education/Training Program; Admitting Provider Internal Medicine; Visit Provider Internal Medicine
DX: I45.5 Other specified heart block (principal); R07.89 Other chest pain; R42 Dizziness and giddiness; R11.16 Cannabis hyperemesis syndrome; R00.1 Bradycardia, unspecified; R11.2 Nausea with vomiting, unspecified; R93.1 Abnormal findings on diagnostic imaging of heart and coronary circulation; R03.0 Elevated blood-pressure reading, without diagnosis of hypertension; F12.90 Cannabis use, unspecified, uncomplicated
CPT/HCPCS: 36415; 70450; 71046; 80053; 80307; 81001; 82088; 82627; 83690; 83735; 84244; 84436; 84443; 84484; 85025; 93005; 93976; 96361; 96374; 99285; A9270; C8929; J1650; J7030; Q9957